=== PATIENT | female | born 1955 | race Caucasian/White ===

== ENCOUNTER → 2017-01-07 | Outpatient (CLI) | payer BC ==
--- NOTE | ~2017-01-07 | ESTC ---
Cardiac Perfusion Imaging Demographics Patient Name CHRIS Sim Gender Female Patient Number [id number] Race Visit Number [id number] Ethnicity Corporate ID Room Number Accession Number [id number] Height 66 inches Date of 1955 Weight 224 pounds MD Nasra NGUYEN Interpreting Physician Minor Christina Date of study 01/07/2017 MD Supervising /MLP Minor Christina NM Technologist Liseth Ordaz MD Ordering Physician Minor Christina Stress MD hospital laboratory technician Stress ECG Reading Minor Christina Nurse Anthony Whatley Physician Medications Reviewed with Patient prior to Procedure. Procedure Procedure Type: Nuclear Stress Test:Pharmacological, Lexiscan, Cardiolite Stress Test Procedure Start time: 01/07/2017 10:30 Indications: Pre surgical clearance. Risk Factors The patient risk factors include:obesity and physical activity. Conclusions Summary Lexiscan cardiolite with no EKG changes of ischemia. Normal perfusion images. LVEF:55%. Normal WM. Stress Protocols Resting ECG RSR. Pre-stress physical exam: Un changed. Predicted HR: 161 bpm ECG Findings No ECG changes suggestive of ischemia. Arrhythmias No rhythm abnormality. Symptoms Pressure in the epigastrium.No chest pain or SOB. Stress Interpretation Lexiscan cardiolite with some epigastric pressure. Normal hemodynamic response. No EKG changes of ischemia or arrythmias. Imaging Results High risk findings Summed scores - Summed stress score: 4 - Summed rest score: 2 - Summed difference score: 2 Stress ejection Ejection fraction:55 % EDV :89 ml ESV :40 ml Stroke volume :49 ml LV mass :132 gr LV size:Normal Normal LV function Imaging Protocols Rest Stress Isotope:Tc99m Sestamibi IV Isotope: Tc99m Sestamibi IV Isotope dose:14.1 mCi Isotope dose:43.7 mCi Date:01/07/2017 08:10 Date:01/07/2017 10:57 Technique: SPECT Technique: Gated Supine SPECT Supine Scan Time:45-60 minutes post Scan Time:45-60 minutes post injection injection Procedure Medications - Regadenoson (Lexiscan) 0.4 mg IV over 10-15 sec. I.V. 0.4 mg. Medications administered per verbal order and read back to physician prior to administration. Medical History Admission Data Admission date: 01/07/2017 Admission Time: 07:47 Hospital Status: Outpatient. Signatures dtt: Carri Gaxiola dtd: 01/07/17 1030 Physician Self Edit
== END | disposition disaster alternative care site (69) ==
LOC: GRAD 07:45
DX: Z01.818 Encounter for other preprocedural examination (principal); R07.9 Chest pain, unspecified; E66.9 Obesity, unspecified
CPT/HCPCS: A9500; J2785